=== PATIENT | male | born 1960 | race Asian ===

== ENCOUNTER 2021-04-30 07:59 | Day surgery (SDC) | payer MEDICARE, BC, OTHER ==
[~2021-04-30] VITALS: Ht 160 cm; Wt 55.8 kg
[~2021-04-30 07:59] MED LIST: ALPR.25; ALPR.25 PO; AZIT250 PO; BENZ100A PO; CALCIUM PO; CYCL10 PO; DIGO.25; ERGO400 PO; FIBER TABS PO; FLAX; HYDACE25S PR; HYDACE5 PO; HYOS.125; HYOS.125 SL; IRON 325 MG PO; LOPE2C PO; METO25ER; NAPR250; NAPR500 PO; OLOP.1OPSO OD; OMEP20ER PO; ONDA4ODT MM; POLY500; POLY500 PO; PROM25 PO; RXCYCL10 PO; RXHYDACE PO; SERT25 PO; SIMV10 PO; SIMV5 PO; TRAM50 PO; TRIA55OI; TRIAOIA; TRIM250 PO; VIT D PO; Zantac150 MG PO
[2021-04-30] MEDS ORDERED: FISH OIL 1,2001 EAC7 (08:28)
[2021-04-30] MEDS ORDERED: Aspir 8181 MG (08:28)
== END 2021-04-30 10:16 | disposition home or self-care (01) ==
LOC: ORSCSDS 07:59
PROVIDERS: Student in an Organized Health Care Education/Training Program
PROC: 0DBP8ZX Excision of Rectum, Via Natural or Artificial Opening Endoscopic, Diagnostic (ICD-10-PCS; principal; 2021-04-30 09:15)
PROC: 0DBL8ZX Excision of Transverse Colon, Via Natural or Artificial Opening Endoscopic, Diagnostic (ICD-10-PCS; principal; 2021-04-30 09:15)
PROC: 0DBK8ZX Excision of Ascending Colon, Via Natural or Artificial Opening Endoscopic, Diagnostic (ICD-10-PCS; principal; 2021-04-30 09:15)
DX: Z12.11 Encounter for screening for malignant neoplasm of colon (principal); Z86.010 Personal history of colon polyps; D12.2 Benign neoplasm of ascending colon; D12.3 Benign neoplasm of transverse colon; D12.4 Benign neoplasm of descending colon; D12.8 Benign neoplasm of rectum; K57.30 Diverticulosis of large intestine without perforation or abscess without bleeding; K64.8 Other hemorrhoids; I48.0 Paroxysmal atrial fibrillation; Z79.899 Other long term (current) drug therapy
CPT/HCPCS: 88305; J2704; J7120

== ENCOUNTER → 2021-11-15 | Outpatient (CLI) | payer MEDICARE, BC, OTHER ==
[~2021-11-15] MED LIST changes: +Aspir 8181 MG; +FISH OIL 1,2001 EAC7
[2021-11-15 10:15] LABS: BASOPHILS ABSOLUTE AUTO 0.04 K/mm3 (0.00-0.23); BASOPHILS PERCENT AUTO 1 % (0-2); EOSINOPHILS ABSOLUTE AUTO 0.19 K/mm3 (0.00-0.68); EOSINOPHILS PERCENT AUTO 4 % (0-6); Hematocrit 36.7 % (37.0-53.0); Hemoglobin 12.2 g/dL (13.5-17.5); IMMATURE GRAN ABSOLUTE AUTO 0.04 K/mm3 (0.00-0.10); IMMATURE GRAN PERCENT AUTO 1 % (0-1); LYMPHOCYTES ABSOLUTE AUTO 0.96 K/mm3 (0.84-5.20); LYMPHOCYTES PERCENT AUTO 18 % (21-46); MONOCYTES ABSOLUTE AUTO 0.92 K/mm3 (0.16-1.47); MONOCYTES PERCENT AUTO 17 % (4-13); Mean Corpuscular HGB 29.1 pg (26.0-34.0); Mean Corpuscular HGB Conc 33.2 g/dL (31.5-36.5); Mean Corpuscular Volume 88 fL (80-100); Mean Platelet Volume 8.6 fL (9.1-12.4); NEUTROPHILS ABSOLUTE AUTO 3.14 K/mm3 (1.96-9.15); NEUTROPHILS PERCENT AUTO 59 % (41-73); Platelet Count 143 K/mm3 (150-400); Red Blood Cell Count 4.19 M/mm3 (4.30-5.90); White Blood Cell Count 5.29 K/mm3 (4.00-11.30)
[2021-11-15 10:26] LABS: Alanine Aminotransfer (ALT/SGP 61 U/L (12-78); Albumin, Blood 3.9 g/dL (3.4-5.0); Albumin/Globulin Ratio 1.5 (0.8-1.8); Alk Phos 78 U/L (40-126); Anion Gap 10 mmol/L (6-16); Aspartate Aminotrans (AST/SGOT 39 U/L (12-37); Bilirubin, Total 0.8 mg/dL (0.1-1.0); Blood Urea Nitrogen 22 mg/dL (8-24); Bun/Creatinine Ratio 28.9 (12.0-20.0); CO2, Blood 26 mmol/L (21-32); Calcium, Blood 8.2 mg/dL (8.5-10.1); Chloride, Blood 107 mmol/L (98-108); Creatinine, Blood 0.76 mg/dL (0.60-1.20); Globulin, Blood 2.6 g/dL (2.2-4.0); Glomerular Filtration Rate >60 (60-); Glucose, Blood 95 mg/dL (70-99); Potassium, Blood 4.1 mmol/L (3.5-5.5); Sodium, Blood 143 mmol/L (136-145); Total Protein, Blood 6.5 g/dL (6.4-8.2)
== END | disposition home or self-care (01) ==
LOC: LAB SHORT 10:10
PROVIDERS: General Practice
DX: J02.9 Acute pharyngitis, unspecified (principal); R06.00 Dyspnea, unspecified
CPT/HCPCS: 80053; 83880; 84484; 85025; 85379; 87081

== ENCOUNTER 2021-11-21 12:49 | Emergency (ER) | payer MEDICARE, BC, OTHER ==
[~2021-11-21] VITALS: Ht 160 cm; Wt 50.8 kg
== END 2021-11-21 15:50 | disposition home or self-care (01) ==
LOC: ER 12:49
DX: R79.1 Abnormal coagulation profile (principal); R06.02 Shortness of breath; Z79.82 Long term (current) use of aspirin; Z79.899 Other long term (current) drug therapy; Z88.1 Allergy status to other antibiotic agents; Z88.8 Allergy status to other drugs, medicaments and biological substances
CPT/HCPCS: 36415; 71260; Q9967

== ENCOUNTER 2022-08-14 03:21 | Inpatient (IN) | payer MEDICARE, BC, OTHER ==
[~2022-08-14] VITALS: Ht 162.6 cm; Wt 59.3 kg
[2022-08-14 03:56] LABS: Hematocrit 34.9 % (37.0-53.0); Hemoglobin 11.5 g/dL (13.5-17.5); Mean Corpuscular HGB 28.3 pg (26.0-34.0); Mean Corpuscular Volume 86 fL (80-100); Platelet Count 107 K/mm3 (150-400); RDW Coefficient Variation 15.4 % (11.7-14.2); RDW Standard Deviation 48.6 fL (35.1-46.3); Red Blood Cell Count 4.06 M/mm3 (4.30-5.90)
[2022-08-14 04:17] LABS: Albumin, Blood 3.7 g/dL (3.4-5.0); Albumin/Globulin Ratio 1.3 (0.8-1.8); Bilirubin, Total 1.3 mg/dL (0.1-1.0); Bun/Creatinine Ratio 19.2 (12.0-20.0); Calcium, Blood 7.8 mg/dL (8.5-10.1); Creatinine, Blood 1.72 mg/dL (0.60-1.20); Globulin, Blood 2.8 g/dL (2.2-4.0); Potassium, Blood 3.2 mmol/L (3.5-5.5); Total Protein, Blood 6.5 g/dL (6.4-8.2)
[2022-08-14] MEDS ORDERED: ATOR80 PO (04:20)
[2022-08-14] MEDS ORDERED: Coq-1030 MG PO (04:21)
[2022-08-14] MEDS ORDERED: AVAPRO75 MG PO (04:21)
[2022-08-14] MEDS ORDERED: POLY500 PO (04:21)
[2022-08-14 06:09] LABS: BAND PERCENT MAN 12 % (0-8); BASOPHILS PERCENT MAN 0 % (0-2); EOSINOPHILS ABSOLUTE MAN 0.02 K/mm3 (0.00-0.68); EOSINOPHILS PERCENT MAN 2 % (0-6); LYMPHOCYTES ABSOLUTE MAN 0.28 K/mm3 (0.84-5.20); LYMPHOCYTES PERCENT MAN 26 % (21-46); METAMYELOCYTE ABSOLUTE MAN 0.07 K/mm3 (0.00-0.00); METAMYELOCYTE PERCENT MAN 7 % (0-0); MONOCYTES PERCENT MAN 0 % (4-13); MYELOCYTE ABSOLUTE MAN 0.05 K/mm3 (0.00-0.00); MYELOCYTE PERCENT MAN 5 % (0-0); NEUTROPHILS ABSOLUTE MAN 0.66 K/mm3 (1.96-9.15); SEG NEUTROPHILS PERCENT MAN 48 % (41-73); TOTAL CELLS COUNTED 100
[2022-08-14 07:16] LABS: PCO2 Arterial 47.6 mmHg (35-45); PO2 Arterial 195 mmHg (80-100); pH Blood Arterial 7.12 (7.35-7.45)
[2022-08-14 09:39] LABS: Base Excess Venous -13.6 mmol/L; PCO2 Venous 53.4 mmHg (38-42); PO2 Venous 101 mmHg (38-42); pH Blood Venous 7.09 (7.34-7.37)
[2022-08-14 09:41] LABS: Source, Urine Foley catheter
[2022-08-14 09:45] LABS: Appearance, Urine Clear (Clear); Bilirubin, Urine Neg (Neg); Blood, Urine 5+ (Neg); Color, Urine Yellow (P-Yellow); Glucose Qualitative, Urine Neg (Neg); Ketones, Urine Neg (Neg); Leukocyte Esterase, Urine Neg (Neg); Nitrite, Urine Neg (Neg); Protein, Urine 2+ (Neg); Urobilinogen, Urine NORM (Normal)
[2022-08-14 10:05] LABS: Renal Epithelial Few /hpf (0-Rare); White Blood Cells, Urine 0-2 /hpf (0-5)
[2022-08-14 10:06] LABS: Bacteria Few /hpf; Red Blood Cells, Urine TNTC /hpf (0-2); Squamous Epithelial Cells Not Seen /hpf (Few)
[2022-08-14 11:04] LABS: Influenza A, PCR NEGATIVE (NEGATIVE); Influenza B, PCR NEGATIVE (NEGATIVE); Resp Syncytial Virus, PCR NEGATIVE (NEGATIVE); SARS-Cov-2 (COVID-19) PCR, MMC NEGATIVE (NEGATIVE)
[2022-08-14 11:05] LABS: Adenovirus F 40/41 Not Detected (NOT DETECT); Astrovirus Not Detected (NOT DETECT); Campylobacter Sp Not Detected (NOT DETECT); Cryptosporidium Not Detected (NOT DETECT); Cyclospora Cayetanensis Not Detected (NOT DETECT); E. Coli O157 Not Detected (NOT DETECT); Entamoeba Histolytica Not Detected (NOT DETECT); Enteroaggregative E. coli-EAEC Not Detected (NOT DETECT); Enteropathogenic E. coli-EPEC Not Detected (NOT DETECT); Enterotoxigenic E. coli-ETEC Not Detected (NOT DETECT); Giardia Lamblia Not Detected (NOT DETECT); Norovirus GI/GII Not Detected (NOT DETECT); Plesiomonas Shigelloides Not Detected (NOT DETECT); Rotavirus A Not Detected (NOT DETECT); Salmonella Sp Not Detected (NOT DETECT); Sapovirus Not Detected (NOT DETECT); Shiga Toxin-prod E. coli-STEC Not Detected (NOT DETECT); Shigella/Enteroin E. coli-EIEC Not Detected (NOT DETECT); Vibrio Cholerae Not Detected (NOT DETECT); Vibrio Sp Not Detected (NOT DETECT); Yersinia Enterocolitica Not Detected (NOT DETECT)
--- NOTE | 2022-08-14 11:17 | NUR ---
PT ADMITTED TO ICU FROM ER AT 0845 FOR RESP FAILURE/SEVERE SEPSIS. 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 PT UNRESPONSIVE. ABSENT GAG/COUGH/SWALLOW. NO RESPONSE TO PAIN. CT OF HEAD COMPLETE. PT ARRIVED W LEVOPHED AT 25MCG AND VASOPRESSIN GTT INFUSING. INITIALLY THERE WERE SEVERAL HIGH BLOOD PRESSURES, LEVOPHED TITRATED DOWN TO 10MCG. AT 0900M BP 126/106, AT 0915 61/25. DURING THIS TIME DR STALEY WHO HAD BEEN CONSULTED WAS AT BEDSIDE. LEVOPHED TITRATED UP TO 30MCG PER DR STALEY. LR BOLUS STARTED, CA CHLOR ORDERED AND GIVEN. 2AMPS BICARB GIVEN. BP REMAINED LOW, EPI THEN ORDERED AND STARTED AT 2MCG. PT RESPONDED WELL TO THIS. MAP NOW >65. CRITICAL PH, AND LACTIC GIVEN TO DR STALEY. PT WITH COPIOUS AMTS OF LIGHT COLORED LIQUID STOOL. SAMPLE SENT. 30CC CHOUDHURY CATHETER USED RECTAL TUBE D/T PT'S SMALL STATURE. PEDIATRIC 10F CHOUDHURY PLACED W/O DIFFICULTY. 15CC URINE OUTPUT SENT TO LAB. DR STALEY NOTIFIED OF LOW U/O. PT HYPOTHERMIC ON ADMIT, RECTAL TEMP PROBE PLACED WHICH READ AROUND 94.0. BEAR HUGGER PLACED AT LOW D/T HYPOTENSION.BEDSIDE ECHO COMPLETED. DR STALEY SPOKE W PT'S BROTHER, PT'S SISTER FLYING IN AND IS REPORTED TO ARRIVE IN ABOUT 3HOURS.
--- NOTE | 2022-08-14 12:09 | NUR ---
PT REMAINS UNRESPONSIVE. ART LINE PLACED BY DR STALEY TO RIGHT AXILLARY. LEVOPHED TITRATED DOWN TO 20MCG, EPI TITRATED UP TO 4MCG.
[2022-08-14 12:47] LABS: PCO2 Arterial 34.9 mmHg (35-45); PO2 Arterial 72.1 mmHg (80-100); pH Blood Arterial 7.12 (7.35-7.45)
[2022-08-14 12:53] LABS: Bun/Creatinine Ratio 17.7 (12.0-20.0); Calcium, Blood 6.9 mg/dL (8.5-10.1); Creatinine, Blood 1.86 mg/dL (0.60-1.20); Potassium, Blood 3.2 mmol/L (3.5-5.5)
--- NOTE | 2022-08-14 12:58 | NUR ---
PEEP INCREASED TO 7, FIO2 60% BY DR STALEY AT 1220. STAT ABG DRAWN, RESULTS GIVEN TO DR STALEY. AWAITING BMP. BICARB GTT ORDERED.
--- NOTE | 2022-08-14 15:39 | NUR ---
PT'S SISTER PAT AT BEDSIDE. DR STALEY GAVE PAT AND PT'S BROTHER (ON THE PHONE) AN EXTENSIVE UPDATE. PT DNR STATUS. YOEL Stallings PALLIATIVE CARE ALSO VISITED WITH PT'S SISTER AND OFFERED SUPPORT. U/O HAS INCREASED, ABOUT 300CC U/O. LEVOPHED SLOWLY TITRATED DOWN TO 20MCG, EPI AT 5.
--- NOTE | 2022-08-14 17:26 | NUR ---
DR STALEY IN TO SEE PT AND TO SPEAK WITH PT'S SISTER. PT DID GRIMACE TO PAIN. FIO2 UP TO 65%, SATS 90-93%.
--- NOTE | 2022-08-14 19:00 | NUR ---
ASSUMPTION OF CARE BEDSIDE REPORT RECEIVED AT THIS TIME. PT IS HAVING RHYTHMIC MOVEMENT OF HEAD AND LIMBS. EYELIDS FLUTTERING. LIMBS REMAIN FLACCID AFTER ACTIVITY. DR STALEY NOTIFIED. ORDER RECEIVED FOR IV ATIVAN. PT BECOMES HYPOTENSIVE, DR STALEY STS EPI CAN BE TITRATED TO 30MCG/MIN NEEDED. HE REMAINS INTUBATED WITH VENT SETTINGS AC/VC 18/440/7/65%. HE IS RECEIVING LEVOPHED 20MCG/MIN THAT IS TITRATED TO 30MCG/MIN, VASOPRESSIN 0.04UNITS/MIN, EPINEPHRINE 30MCG/MIN, AND BICARB 150ML/HR. CHOUDHURY PATENT AND DRAINING TO GRAVITY. RECTAL TUBE IN PLACE DRAINING TO GRAVITY. SISTER AT BEDSIDE.
--- NOTE | 2022-08-14 19:02 | NUR ---
PT WITH POSSIBLE ATYPICAL SIEZURE ACTIVITY. PT EYES OPEN WITH RYTHMIC MOVEMENT, NYSTAGMUS NOTED WELL, ABSENT CORNEAL REFLEX. MOUTH ALSO OPENS AND MOVES IN RYTHMIC MOVEMENT. BODY FLACCID. TREMOR TO RIGHT SHOULDER AND RIGHT THIGH. NO RESPONSE TO PAIN. ABSENT GAG, COUGH, ABSENT PLANTAR. DR STALEY CALLED. ATIVAN 2MG IVP NOW, PROPOFOL TO BE STARTED. BEDSIDE REPORT GIVEN.
--- NOTE | 2022-08-14 20:00 | NUR ---
UPDATE SISTER PAT AT BEDSIDE AND UPDATED ON PT CONDITION AND INCREASE IN VASOPRESSORS AND VENTILATOR REQUIREMENTS. PAT REQUESTS THIS RN TO UPDATE BROTHER BILL. FAMILY DISCUSSING OPTIONS. PT DESATS TO 70S. FIO2 INCREASED TO 100%. EPI AT 30MCG/MIN, LEVOPHED AT 30MCG/MIN AND VASOPRESSIN INFUSING.
--- NOTE | 2022-08-14 21:00 | NUR ---
UPDATE AFTER FAMILY DISCUSSION, PLAN TO TRANSITION TO COMFORT CARE.
--- NOTE | 2022-08-14 21:29 | NUR ---
TIME OF MEDICATIONS AND VENTILATOR TURNED OFF. PAT AND FRIEND AT BEDSIDE. MEDICATED PER EMAR. TIME OF 2128. DR STALEY NOTIFIED.
== END 2022-08-14 21:29 | DRG 871 ==
LOC: ER 03:21 → ICUW 06:24 → ERHOLD 06:24 → ICUW 08:45
PROVIDERS: Emergency Medicine; Internal Medicine Critical Care Medicine; ADMIT Internal Medicine
PROC: 0DH67UZ Insertion of Feeding Device into Stomach, Via Natural or Artificial Opening (ICD-10-PCS; principal; 2022-08-14)
PROC: 02HV33Z Insertion of Infusion Device into Superior Vena Cava, Percutaneous Approach (ICD-10-PCS; 2022-08-14)
PROC: 03HY32Z Insertion of Monitoring Device into Upper Artery, Percutaneous Approach (ICD-10-PCS; 2022-08-14)
PROC: B34HZZZ Ultrasonography of Right Upper Extremity Arteries (ICD-10-PCS; 2022-08-14)
PROC: 3E033XZ Introduction of Vasopressor into Peripheral Vein, Percutaneous Approach (ICD-10-PCS; 2022-08-14)
PROC: 3E03329 Introduction of Other Anti-infective into Peripheral Vein, Percutaneous Approach (ICD-10-PCS; 2022-08-14)
PROC: 5A1935Z Respiratory Ventilation, Less than 24 Consecutive Hours (ICD-10-PCS; 2022-08-14)
PROC: 0BH17EZ Insertion of Endotracheal Airway into Trachea, Via Natural or Artificial Opening (ICD-10-PCS; 2022-08-14)
PROC: 4A133B1 Monitoring of Arterial Pressure, Peripheral, Percutaneous Approach (ICD-10-PCS; 2022-08-14)
PROC: 4A133J1 Monitoring of Arterial Pulse, Peripheral, Percutaneous Approach (ICD-10-PCS; 2022-08-14)
PROC: 0T9B70Z Drainage of Bladder with Drainage Device, Via Natural or Artificial Opening (ICD-10-PCS; 2022-08-14)
DX: A41.9 Sepsis, unspecified organism (principal); J69.0 Pneumonitis due to inhalation of food and vomit; K22.6 Gastro-esophageal laceration-hemorrhage syndrome; J96.01 Acute respiratory failure with hypoxia; R65.21 Severe sepsis with septic shock; N17.9 Acute kidney failure, unspecified; E87.20 Acidosis, unspecified; R62.50 Unspecified lack of expected normal physiological development in childhood; K52.9 Noninfective gastroenteritis and colitis, unspecified; K64.9 Unspecified hemorrhoids; D72.819 Decreased white blood cell count, unspecified; I34.1 Nonrheumatic mitral (valve) prolapse; J30.9 Allergic rhinitis, unspecified; E78.5 Hyperlipidemia, unspecified; I10 Essential (primary) hypertension; B95.0 Streptococcus, group A, as the cause of diseases classified elsewhere; Z20.822 Contact with and (suspected) exposure to COVID-19; Z86.79 Personal history of other diseases of the circulatory system; Z98.890 Other specified postprocedural states; Z90.49 Acquired absence of other specified parts of digestive tract; Z88.8 Allergy status to other drugs, medicaments and biological substances; Z88.1 Allergy status to other antibiotic agents; Z79.899 Other long term (current) drug therapy; Z79.82 Long term (current) use of aspirin; Z79.02 Long term (current) use of antithrombotics/antiplatelets
CPT/HCPCS: 0241U; 31500; 36415; 36556; 36600; 36620; 51702; 70450; 71045; 74177; 80048; 80053; 81001; 82272; 82330; 82803; 83605; 83690; 83880; 85025; 87040; 87070; 87147; 87205; 87449; 87507; 93005; 93010; 93306; 94002; 96365-59; 96366-59; 96367-59; 96375-59; 99291-25; A9270; C1751; C9113; J0171; J0456; J0692; J1170; J1650; J1720; J2060; J2250; J2270; J2405; J2543; J3010; J3370; J3480; J7030; J7040; J7050; J7060; J7120; Q9967